=== PATIENT | female | born 1965 | race Two or more races ===

== ENCOUNTER 2018-02-15 05:01 | Emergency (ER) | payer BC ==
[2018-02-15 05:04] VITALS: BMI 28.3
--- NOTE | 2018-02-15 05:18 | PDOC ---
History of Present Illness - General Chief Complaint: Alcohol intoxication Stated Complaint: DIFFICULTY BREATHING Time Seen by Provider: 02/15/18 05:16 History Source: Patient Exam Limitations: Intoxication - History of Present Illness Initial Comments: Pt is a 52 yo F, with PMH of HTN, hypothyroidism, and GERD, who is presenting via EMS with chest tightness and SOB after heavy alcohol ingestion today. Pt states just prior to presentation, she went to the bathroom, and suddenly felt short of breath and had a chest tightness that "spread all over her chest". She called her to help her, and she went to lie down on the bed and the SOB/ chest tightness subsided, lasting around 3 minutes. The pt had 6-7 glasses of wine today, and normally does not drink alcohol. She states her allergies have been bothering her lately "with the season" and has been feeling chest tightness. Pt denies any fevers/chills, headache, vision changes, palpitations, nausea/vomiting, abdominal pain, urinary symptoms, diarrhea/constipation, or leg swelling. She denies any recent surgeries/travel/bedrest. 02/15/18 06:53 Pt denies any cigarette or drug use. She normally has 1 glass of wine per week, but had 6-7 glasses tonight. Pt denies any recent travel or sick contacts. 02/15/18 06:54 Past History - Travel Traveled outside of the country in the last 30 days: No Close contact w/someone who was outside of country & ill: No - Past Medical History Allergies/Adverse Reactions: Allergies Allergy/AdvReac Type Severity Reaction Status Date / Time No Known Allergies Allergy Verified 02/15/18 05:02 Home Medications: Ambulatory Orders Losartan Potassium 100 mg PO DAILY 01/02/16 propRANOLol HCL [Inderal *LA*] 160 mg PO DAILY 01/02/16 Omeprazole 20 mg PO DAILY 02/15/18 Cardiac Disorders: No Hx Myocardial Infarction: No COPD: No CHF: No DVT: No GI Disorders: Yes (GERD) HTN: Yes Hypercholesterolemia: No Thyroid Disease: Yes (hypo) - Surgical History Abdominal Surgery: Yes Cholecystectomy: Yes - Suicide/Smoking/Psychosocial Hx Smoking History: Unknown if ever smoked Have you smoked in the past 12 months: No Information on smoking cessation initiated: No Hx Alcohol Use: No Drug/Substance Use Hx: No Substance Use Type: None Review of Systems - Review of Systems Able to Perform ROS?: Yes Is the patient limited Kyrgyz proficient: No Constitutional: Yes: Weakness. No: Chills, Diaphoresis, Fever, Malaise, Weight Stable HEENTM: No: Blurred Vision, Double Vision, Nose Congestion, Throat Pain, Throat Swelling *Physical Exam - Vital Signs Last Vital Signs Temp Pulse Resp BP Pulse Ox 97.9 F 74 20 169/78 100 02/15/18 05:03 02/15/18 05:03 02/15/18 05:03 02/15/18 05:03 02/15/18 05:03 Heart Score/ECG Review - History History: Slightly suspicious - Electrocardiogram EKG: Non specific repolarization disturbance - Age Age: 45-65 - Risk Factors Risk Factors Heart Score: Yes Hx Hypertension Based on the list above the patient has:: 1-2 risk factors - Troponin Troponin: </= normal limit - Score Heart Score - Total: 3 Medical Decision Making - Medical Decision Making Pt was seen at bedside, also will be seen by attending Dr. Aldridge. Pt presenting via EMS with chest tightness and SOB after heavy alcohol ingestion today. Pt states just prior to presentation, she went to the bathroom, and suddenly felt short of breath and had a chest tightness that "spread all over her chest". She called her to help her, and she went to lie down on the bed and the SOB/ chest tightness subsided, lasting around 3 minutes. The pt had 6-7 glasses of wine today, and normally does not drink alcohol. She states her allergies have been bothering her lately "with the season" and has been feeling chest tightness. Pt denies any fevers/chills, headache, vision changes, palpitations, nausea/vomiting, abdominal pain, urinary symptoms, diarrhea/constipation, or leg swelling. She denies any recent surgeries/travel/bedrest. Vitals: T 97.9, HR 74, RR 20, BP 169/78, O2 100%. PE showed diffuse wheezing b/ l in posterior lung se[place]. No tenderness to chest wall palpation. Conjunctival injection and pt smells heavily of alcohol. Considering ACS vs inflammatory (bronchoconstriction/allergies) vs anxiety. Very minimal risk for PE, no hormone use, recent surgery/travel/bedrest, no leg swelling, O2 saturation 100%, not tachycardic. Ordered work-up including CBC, CMP, ECG, troponin, alcohol level, chest x-ray. Provided 1 albuterol nebulizer treatment for improvement of chest tightness and wheezing. Will continue to reassess pt and monitor for symptomatic improvement. 02/15/18 05:38 ECG showed NSR, HR 77, normal intervals. TWIs/flattening of T waves in inferior leads and V3-V6. No prior ECG for comparison. 02/15/18 05:47 CBC WNL. Pending CMP, troponin, chest x-ray. 02/15/18 06:09 Pt states breathing improved after albuterol nebulizer treatment. Pt lung sounds clear, no continued wheezing. CMP WNL. Trop <.02 Alcohol 118. Pt still having trouble ambulating to go to the bathroom. Pending chest x-ray and pt to be clinically sober. 02/15/18 06:34 02/15/18 06:49 *DC/Admit/Observation/Transfer Diagnosis at time of Disposition: Atypical chest pain, Shortness of breath Alcohol intoxication Qualifiers: Complication of substance-induced condition: uncomplicated Qualified Code(s): F10.920 - Alcohol use, unspecified with intoxication, uncomplicated - Discharge Dispostion Disposition: HOME Condition at time of disposition: Improved Decision to Admit order: No - Referrals - Patient Instructions Printed Discharge Instructions: DI for Atypical Chest Pain, DI for Shortness of Breath Additional Instructions: You were seen in the ER today for chest tightness and shortness of breath. The results of your labs and imaging today were normal. Please follow-up with your primary care doctor within 1-2 days to discuss your visit and make sure your symptoms have improved. Please return to the ER if you have any worsening pain or shortness of breath, development of fevers or chills, loss of consciousness, inability to tolerate food or fluids, or any other concerns. - Post Discharge Activity
[2018-02-15] MEDS ORDERED: ALBUTEROL SO4 0.083% IH SOL 2.5 MG/3 ML VIAL.NEB. NEB ONE ×2 (05:33→05:51)
[2018-02-15] MEDS ORDERED: SODIUM CHLORIDE 0.9% 500 ML INFUS.BAG IV ONE (05:42)
--- NOTE | 2018-02-15 05:45 | PDOC ---
Attending Attestation - Resident Resident Name: KayleeJessica - ED Attending Attestation I have performed the following: I have examined & evaluated the patient, The case was reviewed & discussed with the resident, I agree w/resident's findings & plan - HPI HPI: 02/16/18 01:33 Pt drank a bottle of wine at home yesterday from 6PM onwards to 3am. Now appears with SOB and difficulty breathing. Pt has no other complaints. She doesn't appear particularly intoxicated. Pt has no fevers and no chills. SHe has no other complaints. - Physicial Exam PE: 02/16/18 01:34 Agree with resident exam. Pt has some tight breath sounds. Minimal patchy wheeze throughout. - Medical Decision Making 02/16/18 01:34 Pt's alcohol level is 100s. She is vastly imrproved with a single duoneb. She will be signed out to the day team. They will dispo the patient and discharge her once all her results return and once she is eeling better and her breath sounds are clear.
[2018-02-15 05:56] LABS: EOS % 3.5 % (0-4.5); HEMATOCRIT 38.5 % (32.4-45.2); HEMOGLOBIN 12.4 GM/dL (10.7-15.3); LYMPH % 36.6 % (8-40); MCH 28.4 pg (25.7-33.7); MCHC 32.3 g/dl (32.0-36.0); MEAN CELL VOLUME 88.1 fl (80-96); MEAN PLT VOLUME 7.4 fl (7.5-11.1); MONO % 7.7 % (3.8-10.2); NEUT % 51.2 % (42.8-82.8); PLATELET COUNT 210 K/MM3 (134-434); RBC 4.37 M/mm3 (3.60-5.2); RDW 13.3 % (11.6-15.6); WHITE BLOOD COUNT 7.3 K/mm3 (4.0-10.0)
[2018-02-15 06:30] LABS: ALBUMIN 3.8 g/dl (3.4-5.0); ALK PHOS 72 U/L (45-117); ANION GAP 7 MMOL/L (8-16); BILIRUBIN,TOTAL 0.2 mg/dL (0.2-1); BLOOD UREA NITROGEN 11 mg/dL (7-18); CALCIUM 8.4 mg/dL (8.5-10.1); CHLORIDE 110 mmol/L (98-107); CO2 26 mmol/L (21-32); CREATININE 0.6 mg/dL (0.55-1.3); GLUCOSE,RANDOM 112 mg/dL (74-106); POTASSIUM 3.6 mmol/L (3.5-5.1); SGOT/AST 23 U/L (15-37); SGPT/ALT 26 U/L (13-61); SODIUM 142 mmol/L (136-145); TOT PROT 7.1 g/dl (6.4-8.2)
[2018-02-15] MEDS ORDERED: DEXAMETHASONE LIQUID 0.5 MG/5 ML 240 ML BULK BOTTLE PO ONE (07:10)
[2018-02-15 07:40] VITALS: BP 129/54; PULSE 70; TEMP 97.9
[2018-02-15] MEDS ORDERED: DEXAMETHASONE SOD PHOSPHATE 10 MG/1 ML VIAL ONE (07:46)
--- NOTE | 2018-02-15 12:32 | EKG ---
Test Reason : Blood Pressure : / mmHG Vent. Rate : 077 BPM Atrial Rate : 077 BPM P-R Int : 160 ms QRS Dur : 092 ms QT Int : 406 ms P-R-T Axes : 031 008 -09 degrees QTc Int : 459 ms NORMAL SINUS RHYTHM NONSPECIFIC T WAVE ABNORMALITY ABNORMAL ECG WHEN COMPARED WITH ECG OF 20-AUG-2006 18:07, COMPARED TO EKG NO SIGNIFICANT CHANGE IS FOUND Confirmed by Corey Lewis ([id number]) on 02/15/2018 12:32:19 PM Referred By: Confirmed By:Corye Lewis
== END 2018-02-15 08:00 | disposition home or self-care (01) ==
LOC: JER 05:01
PROC: 3E0F7GC Introduction of Other Therapeutic Substance into Respiratory Tract, Via Natural or Artificial Opening (ICD-10-PCS; principal; 2018-02-15)
DX: F10.120 Alcohol abuse with intoxication, uncomplicated (principal); Y90.5 Blood alcohol level of 100-119 mg/100 ml; R07.89 Other chest pain; I10 Essential (primary) hypertension; K21.9 Gastro-esophageal reflux disease without esophagitis; E03.9 Hypothyroidism, unspecified
CPT/HCPCS: 36415; 71045-TC-FY; 80053; 80307; 84484; 85025; 93005; 93010; 99283-25

== ENCOUNTER 2018-05-29 11:15 | Emergency (ER) | payer BC ==
[2018-05-29 11:42] VITALS: BP 133/65; PULSE 63; TEMP 98.6; BMI 28.3
[2018-05-29] MEDS ORDERED: IBUPROFEN 600 MG TABLET (FP) PO ONE ×2 (12:51→13:03)
--- NOTE | 2018-05-29 13:31 | PDOC ---
History of Present Illness - General Chief Complaint: Pain, Acute Stated Complaint: RT ANKLE PAIN Time Seen by Provider: 05/29/18 12:46 History Source: Patient Exam Limitations: No Limitations Past History - Past Medical History Allergies/Adverse Reactions: Allergies Allergy/AdvReac Type Severity Reaction Status Date / Time No Known Allergies Allergy Verified 05/29/18 11:38 Home Medications: Ambulatory Orders Losartan Potassium 100 mg PO DAILY 01/02/16 propRANOLol HCL [Inderal *LA*] 80 mg PO DAILY 01/02/16 Omeprazole 20 mg PO DAILY 02/15/18 Cardiac Disorders: No COPD: No CHF: No DVT: No GI Disorders: Yes (GERD) HTN: Yes Hypercholesterolemia: No Thyroid Disease: Yes (hypo) - Surgical History Abdominal Surgery: Yes Cholecystectomy: Yes - Family Disease History Family Disease History: Heart Disease: Mother (stroke/[place]), Other: Mother - Immunization History Immunization Up to Date: Yes - Suicide/Smoking/Psychosocial Hx Smoking History: Never smoked Have you smoked in the past 12 months: No Information on smoking cessation initiated: No Hx Alcohol Use: No Drug/Substance Use Hx: No Substance Use Type: None *Physical Exam - Vital Signs Last Vital Signs Temp Pulse Resp BP Pulse Ox 98.6 F 63 17 133/65 97 05/29/18 11:38 05/29/18 11:38 05/29/18 11:38 05/29/18 11:38 05/29/18 11:38 - Physical Exam General Appearance: No: Apparent Distress Vascular Pulses: Dorsalis-Pedis (R): 2+ Musculoskeletal: positive: Other (Mild swelling along R lateral malleolus, pain on movement of R ankle, no deformity) Extremity: positive: Normal Capillary Refill Integumentary: positive: Normal Color Neurologic: positive: Alert, Normal Mood/Affect Moderate Sedation - Procedure Monitoring Vital Signs: Procedure Monitoring Vital Signs Temperature 98.6 F 05/29/18 11:38 Pulse Rate 63 05/29/18 11:38 Respiratory Rate 17 05/29/18 11:38 Blood Pressure 133/65 05/29/18 11:38 O2 Sat by Pulse Oximetry (%) 97 05/29/18 11:38 ED Treatment Course - RADIOLOGY Radiology Studies Ordered: Category Date Time Status ANKLE & FOOT-RIGHT* [RAD] Stat Radiology 05/29/18 12:52 Ordered - Medications Given in the ED: ED Medications Discontinued Medications Generic Name Dose Route Start Last Admin Trade Name Sofia PRN Reason Stop Dose Admin Ibuprofen 600 mg 05/29/18 12:51 05/29/18 13:04 Motrin - PO 05/29/18 12:52 600 mg ONCE ONE Administration Medical Decision Making - Medical Decision Making 53 y/o F with hx of HTN, hyperthyroidism presents with R ankle pain x 2-3 days. States she twisted her ankle around a week ago while getting out of car but it wasn't really bothering her then. Has been using Tylenol without relief of pain. Denies fever Plan: R ankle/foot xray, Motrin 05/29/18 13:23 Xray wet read negative for fracture Likely ankle sprain Aircast splint placed and given crutches Stable for dc 05/29/18 13:46 *DC/Admit/Observation/Transfer Diagnosis at time of Disposition: Right ankle sprain Qualifiers: Encounter type: initial encounter Involved ligament of ankle: other ligament Qualified Code(s): S93.491A - Sprain of other ligament of right ankle, initial encounter - Discharge Dispostion Disposition: HOME Condition at time of disposition: Stable Decision to Admit order: No - Referrals - Patient Instructions Printed Discharge Instructions: DI for Ankle Sprain, How to Use Crutches Additional Instructions: Thank you for choosing [facility]. It was a pleasure taking care of you. No fracture was noted on your xray. Likely you have ankle sprain. You may take Motrin 600 mg every 6 hours by mouth as needed for mild to moderate pain. Take Motrin with food. Follow-up with your doctor in 2-3 days. Return to the Emergency Department if your symptoms worsen or persist or have other concerning symptoms. - Post Discharge Activity
== END 2018-05-29 14:08 | disposition home or self-care (01) ==
LOC: JERFT 11:15
DX: S93.491A Sprain of other ligament of right ankle, initial encounter (principal); I10 Essential (primary) hypertension; E07.9 Disorder of thyroid, unspecified
CPT/HCPCS: 73610-TC-RT-FY; 73630-TC-RT-FY; 99282-25

== ENCOUNTER 2022-02-28 11:59 | Emergency (ER) | payer BC ==
[2022-02-28 12:09] VITALS: BP 115/65; PULSE 68; RESP 18; TEMP 98.2; BMI 31.2
== END 2022-02-28 15:18 | disposition home or self-care (01) ==
LOC: JER 11:59
DX: H60.391 Other infective otitis externa, right ear (principal)
CPT/HCPCS: 99283-25